=== PATIENT | male | born 1950 | race Caucasian/White ===

== ENCOUNTER 2018-03-21 05:56 | Day surgery (SDC) | payer MEDICARE, BC, SELFPAY ==
[2018-03-21] VITALS (7 sets, daily range): BP systolic 113–129; BP diastolic 58–73; PULSE 54–67; RESP 12–15; TEMP 36.3–37.4; O2SAT 93–96; BMI 28.7
--- NOTE | 2018-03-21 | DI.RAD.S_ITS ---
PROCEDURE: XR FOOT RT MIN 3V INDICATIONS: RIGHT 1ST METATARSEL FX REPAIR TECHNIQUE: 2 views of the foot were acquired. [facility], [facility]/2018, 3:29[facility]W [facility], 06/10/2015, 14:22. FINDINGS: Intraoperative radiographs document the plate and screw placement of internal fixation hardware along the proximal right first metatarsal fracture, with internal fixation hardware spanning the first tarsometatarsal joint. This results in improved alignment of the fracture fragments. No acute hardware fracture noted. IMPRESSION: Intraoperative fluoroscopy for internal fixation of the right proximal first metatarsal fracture. Dictated by: Oliver Morales M.D. on 03/21/2018 at 13:00 Approved by: Oliver Morales M.D. on 03/21/2018 at 13:03
[2018-03-21] MEDS: LACTATED RINGERS 1,000 ML 42 ML IV ×2 (06:50→11:39)
--- NOTE | 2018-03-21 07:21 | PM.PREOP ---
Pre-operative Note Interval Note Pre-op Check: Yes History & Physical Reviewed by Physician and Yes Exam Performed Changes: No H&P completed within 30 days and has changed as indicated here:: no changes
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
[2018-03-21] MEDS: APREPITANT 40 MG CAPSULE PO (08:02)
[2018-03-21] MEDS: MIDAZOLAM 2 MG/2 ML VIAL IV ×2 (08:12→08:30)
[2018-03-21] MEDS: fentaNYL 100 MCG/2 ML INJ 50 MCG IV ×2 (08:12→08:17)
[2018-03-21] MEDS: CEFAZOLIN 2 GM/100 ML FROZ.PIGGY IV (08:50)
--- NOTE | 2018-03-21 09:03 | SUR.PREOP ---
Block start time [0812] . Monitoring initiated and maintained throughout procedure. Oxygen and medications given per anesthesiologist instructions. Patient remained stable throughout procedure, no adverse reactions noted. Block end time [0848].
--- NOTE | 2018-03-21 09:17 | SUR.OPER ---
Case delayed because pt. had pre op block done.
--- NOTE | 2018-03-21 09:21 | SUR.OPER ---
Supine on padded OR bed, head on pillow, arms secured on padded arm boards at <90 degrees abduction, bump under right hip, right leg is under control of surgeon, left leg is taped over the blanket to the table. Safety belt at thighs.
--- NOTE | 2018-03-21 09:56 | PM.PROC.1 ---
Procedures Date/Time Date of procedure: 03/21/18 Time of procedure: 08:30 Nerve Block Time out performed: Yes Local anesthetic used: other (Ropivacaine 0.5% and Lido 2% with epi 1:200K) Location of anesthetic used: right popliteal Amount of anesthesia used (mL): 23 Nerve blocks: peroneal (common peroneal and posterior tibial nerves, popliteal approach), posterior tibial and other Procedure successful: Yes Patient tolerated procedure: well Complications: none Additional comments: Consent signed. Patient has cast on lower right leg with only toes exposed. Patient placed into prone position with monitors and O2 per NC. IV sedation given incrementally (total: versed 4mg and fentanyl 100mcg). Nerve stimulator and Ultra Sound utilized. Landmarks identified. Skin infiltration with 25g needle using 2% Lidocaine. 22g 100mm insulated block needle used. Nerve bundles visualized. 1st attempt resulted in local (muscle) twitches only. Repositioned US and needle for better access. Positive lower leg twitch and good visualization on US. Negative aspiration during incremental injection of LA. Total volume 23ml: 17ml Ropivacaine 0.5% and 6ml Lidocaine 2% with epi 1:200K. No complications noted. Patient ready for OR procedure.
== END 2018-03-21 12:48 | disposition home or self-care (01) ==
PROVIDERS: Visit Provider Orthopaedic Surgery Foot and Ankle Surgery
PROC: (CPT 28485; principal; 2018-03-21 07:45)
DX: S92.311A Displaced fracture of first metatarsal bone, right foot, initial encounter for closed fracture (principal); M19.171 Post-traumatic osteoarthritis, right ankle and foot; V29.9XXA Motorcycle rider (driver) (passenger) injured in unspecified traffic accident, initial encounter; Z87.891 Personal history of nicotine dependence
CPT/HCPCS: 28740; 28485; 64450; 73630; 76001; J0690; J1100; J2250; J2405; J2704; J2795; J3010; J8501

== ENCOUNTER 2019-05-19 05:54 | Day surgery (SDC) | payer MEDICARE, BC, SELFPAY ==
[2019-05-18 08:14] VITALS: BMI 28.8
[2019-05-19] VITALS (9 sets, daily range): BP systolic 122–153; BP diastolic 57–82; PULSE 43–74; RESP 12–20; TEMP 36.1–37.1; O2SAT 87–96; BMI 28.8
--- NOTE | 2019-05-19 | DI.RAD.S_ITS ---
PROCEDURE: XR FOOT RT MIN 3V INDICATIONS: REVISION FIRST TARSOMETATARSAL JOINT FUSION FOR NONUNION TECHNIQUE: 6 views of the foot were acquired. COMPARISON: None. FINDINGS: Spot fluoroscopic intraoperative views demonstrating expected intraoperative alignment of plate and screw arthrodesis of the first tarsometatarsal joint. Dictated by: Alec Pugh M.D. on 05/19/2019 at 13:15 Approved by: Alec Pugh M.D. on 05/19/2019 at 13:16
--- NOTE | 2019-05-19 07:30 | PM.PREOP ---
Pre-operative Note Interval Note History & Physical reviewed/Exam performed by Physician: Yes Changes to H&P: No
[2019-05-19] MEDS: LACTATED RINGERS 1,000 ML 42 ML IV ×2 (07:31→09:09)
[2019-05-19] MEDS: CEFAZOLIN 2 GM/100 ML FROZ.PIGGY IV (08:00)
--- NOTE | 2019-05-19 08:05 | SUR.PREOP ---
Block start time [] . Monitoring initiated and maintained throughout procedure. Oxygen and medications given per anesthesiologist instructions. Patient remained stable throughout procedure, no adverse reactions noted. Block end time [].
--- NOTE | 2019-05-19 08:05 | SUR.PREOP ---
Block start time [0741] . Monitoring initiated and maintained throughout procedure. Oxygen and medications given per anesthesiologist instructions. Patient remained stable throughout procedure, no adverse reactions noted. Block end time [0757].
[2019-05-19] MEDS: MIDAZOLAM 2 MG/2 ML VIAL IV (08:12)
[2019-05-19] MEDS: fentaNYL 100 MCG/2 ML INJ 50 MCG IV (08:12)
--- NOTE | 2019-05-19 08:35 | SUR.OPER ---
Supine on padded OR bed, head on pillow, arms secured on padded arm boards at <90 degrees abduction, legs uncrossed, safety belt at abdomen, tape over blanket over nonoperative leg.
[2019-05-19] MEDS: BUPIVACAINE 0.25% W/ EPI 30 ML VIAL INJ (08:43)
[2019-05-19] MEDS: OXYCODONE IR 5 MG TABLET PO ×2 (12:01→12:51)
--- NOTE | 2019-05-19 12:55 | SUR.PHASEII ---
O2 sat 88-97%RA. Continuous pulse ox placed. Right lung decreased, kathe lungs clear. Deep breaths/cough encouraged, IS encouraged. Pt c/o cracker stuck in his throat, is swallowing well, pudding provided but patient denied improvement. Dr. Faria gave VVO that patient may take a second Oxycodone for pain, patient medicated.
--- NOTE | 2019-05-19 14:16 | SUR.PHASEII ---
Pt able to maintain sats 94-95%ra. Awake and alert. Dressed with assistance from spouse. Biju moore.
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
== END 2019-05-19 14:11 | disposition home or self-care (01) ==
PROVIDERS: PCP Family Medicine; Visit Provider Orthopaedic Surgery Foot and Ankle Surgery
PROC: (CPT 28740; principal; 2019-05-19 07:45)
DX: M96.0 Pseudarthrosis after fusion or arthrodesis (principal); S92.311K Displaced fracture of first metatarsal bone, right foot, subsequent encounter for fracture with nonunion; G89.18 Other acute postprocedural pain; E55.9 Vitamin D deficiency, unspecified
CPT/HCPCS: 28740; 20902; 64445; 64447; 64450; 73630; 76000; J0690; J2250; J3010